=== PATIENT | male | born 1990 | race Caucasian/White ===

== ENCOUNTER 2018-07-28 10:45 | Emergency (ER) | payer OTHER ==
[2018-07-28] MEDS: KETOROLAC 30 MG/ML VIAL (J1885) IV (12:07)
[2018-07-28] MEDS: NS 1,000 ML IV (12:07)
[2018-07-28] MEDS: ONDANSETRON 4MG/2ML VIAL (J2405) IV (12:07)
[2018-07-28 12:09] LABS: BASO # 0.1 10^3/uL (0.0-0.2); EOS # 0.2 10^3/uL (0.0-0.50); HEMATOCRIT 44.7 % (42.0-52.0); HEMOGLOBIN 15.1 g/dl (13.5-17.5); IMMATURE GRANULOCYTE % 0.3 % (0-3.0); LYMPH # 2.2 10^3/uL (1.5-6.5); LYMPH % 29.4 % (24.0-44.0); MEAN CORPUSCULAR HEMOGLOBIN 30.6 pg (27.0-33.0); MEAN CORPUSCULAR HGB CONC 33.8 g/dl (32.0-36.5); MEAN CORPUSCULAR VOLUME 90.5 fl (80.0-96.0); MONO # 0.5 10^3/uL (0.0-0.8); MONO % 7.2 % (0.0-5.0); NEUTROPHILS # 4.4 10^3/uL (1.8-7.7); NEUTROPHILS % 60.1 % (36.0-66.0); PLATELET COUNT, AUTOMATED 221 10^3/uL (150-450); RED BLOOD COUNT 4.94 10^6/uL (4.30-6.10); WHITE BLOOD COUNT 7.3 10^3/uL (4.0-10.0)
[2018-07-28 12:13] LABS: APPEARANCE, URINE CLEAR (CLEAR); BACTERIA, URINE AUTO NEGATIVE (NEGATIVE); BILIRUBIN, URINE AUTO NEGATIVE (NEGATIVE); BLOOD, URINE BLOOD NEGATIVE (NEGATIVE); COLOR, URINE YELLOW (YELLOW); GLUCOSE, URINE (UA) AUTO NEGATIVE (NEGATIVE); KETONE, URINE AUTO NEGATIVE (NEGATIVE); LEUKOCYTE ESTERASE, URINE AUTO NEGATIVE (NEGATIVE); MUCUS, URINE SMALL (NEGATIVE); NITRITE, URINE AUTO NEGATIVE (NEGATIVE); PROTEIN, URINE AUTO NEGATIVE (NEGATIVE); RBC, URINE AUTO 2 /HPF (0-3); SQUAMOUS EPITHELIAL CELL UR AU 0 /HPF (0-6); WBC, URINE AUTO 1 /HPF (0-3)
[2018-07-28 12:56] LABS: ALBUMIN 3.5 GM/DL (3.2-5.2); ALBUMIN/GLOBULIN RATIO 1.03 (1.00-1.93); ALKALINE PHOSPHATASE 59 U/L (45-117); ALT/SGPT 125 U/L (12-78); ANION GAP 7 MEQ/L (8-16); AST/SGOT 54 U/L (7-37); BILIRUBIN,TOTAL 0.5 MG/DL (0.2-1.0); BLOOD UREA NITROGEN 12 MG/DL (7-18); CALCIUM LEVEL 8.7 MG/DL (8.5-10.1); CARBON DIOXIDE LEVEL 25 MEQ/L (21-32); CHLORIDE LEVEL 108 MEQ/L (98-107); CREATININE FOR GFR 1.26 MG/DL (0.70-1.30); GLOMERULAR FILTRATION RATE > 60.0 (>60); GLUCOSE, FASTING 87 MG/DL (70-100); POTASSIUM SERUM 4.1 MEQ/L (3.5-5.1); SODIUM LEVEL 140 MEQ/L (136-145); TOTAL PROTEIN 6.9 GM/DL (6.4-8.2)
[2018-07-28] MEDS ORDERED: ISOVUE-370 76% 100ML VIAL (Q9967) As Ordered (13:13)
== END 2018-07-28 14:35 | disposition home or self-care (01) ==
LOC: M ED 10:45
DX: R94.5 Abnormal results of liver function studies (principal); Z79.899 Other long term (current) drug therapy
CPT/HCPCS: J2405

== ENCOUNTER → 2019-04-26 | Outpatient (CLI) | payer OTHER ==
[~2019-04-26] MED LIST: VITA100054 PO; celebrex PO
--- NOTE | 2019-04-30 14:45 | SLEEPCENT ---
DATE OF STUDY: 04/26/2019 ORDERED BY: Kristy Quinones Nocturnal polysomnography was performed for evaluation of sleep physiology in this patient with a history of excessive somnolence and nonrestorative sleep. 9 hours and 2 minutes of data were reviewed. They are 255 minutes of sleep identified. Sleep latency was prolonged at 101 minutes. Rapid eye movement (REM) latency was prolonged at 219 minutes. Sleep architecture showed poor progression early. Improvement was seen later in the study. There are three REM cycles noted. Overall sleep efficiency was 48%. The patient's electrocardiogram showed a sinus rhythm with an average heart rate of 58 beats per minute. EEG was essentially normal for awake and sleep stages. There was only one respiratory event identified of 10 seconds in duration or greater. There was some snoring. Respiratory-related arousal index was 2.4, minimal activity was noted in the limb EMG leads, and the oxygen saturation was normal at 90+%. IMPRESSION: Normal nocturnal polysomnography with snoring.
== END ==
LOC: M SLEEP 19:30
PROVIDERS: ATTEND Nurse Practitioner Family
DX: R06.83 Snoring (principal)